=== PATIENT | female | born 1945 | race Caucasian/White ===

== ENCOUNTER 2016-05-19 14:59 | Emergency (ER) | payer MEDICARE, OTHER ==
[2016-05-19 15:48] VITALS: BP 153/73; PULSE 76; RESP 20; TEMP 97.8
[2016-05-19] MEDS ORDERED: KETOROLAC 60 MG/2 ML VIAL IM STA (15:55)
--- NOTE | 2016-05-19 15:59 | ED ---
Upper Extremity HPI - General Chief Complaint: Extremity Injury, Upper Stated Complaint: Fall - Shoulder Injury Time Seen by Provider: 05/19/16 15:50 Source: patient, RN notes reviewed Mode of arrival: wheelchair Limitations: no limitations - History of Present Illness Initial Comments: 70-year-old female presents to the emergency room chief complaint of left shoulder pain. Patient states that she tripped and fell and landed onto her left shoulder. Patient states that she felt a muscle tear. Patient states since then she had pain with movement of the shoulder. Patient states that she was concerned due to the fact that her shoulder was causing her some discomfort. Patient states that she thinks she needs an MRI. Patient states she's able to move the shoulder she has good sensation she did not hit her head but there is no passing ill. Patient states that she was concerned due to the pain so she thought that she should be evaluated. Patient denies any recent fever, chills, shortness of breath, chest pain, back pain, abdominal pain, nausea vomiting, numbness or tingling, dysuria or hematuria, constipation or diarrhea, headaches or visual changes, or any other current symptoms. - Related Data Home Medications Medication Instructions Recorded Confirmed Metoprolol Tartrate [Lopressor] 25 mg PO BID 11/28/14 05/19/16 oxyCODONE-APAP 7.5-325MG [Percocet 1 tab PO Q6HR 05/19/16 05/19/16 7.5-325 mg] Allergies Allergy/AdvReac Type Severity Reaction Status Date / Time adhesive Allergy RASH-PAPER Verified 01/22/15 11:10 TAPE OKAY Review of Systems ROS Statement: Those systems with pertinent positive or pertinent negative responses have been documented in the HPI. ROS Other: All systems not noted in ROS Statement are negative. Past Medical History Past Medical History: Hypertension Additional Past Medical History / Comment(s): OCCASIONAL HEART PALPITATIONS, WAS ON DIABETIC MEDICATION -LOST 160LBS AND HAS BEEN OFF MEDICATION SINCE 2007 History of Any Multi-Drug Resistant Organisms: None Reported Past Surgical History: Section, Hysterectomy, Orthopedic Surgery Additional Past Surgical History / Comment(s): , X 3, COLONOSCOPY, RIGHT ELBOW Past Anesthesia/Blood Transfusion Reactions: No Reported Reaction Past Psychological History: No Psychological Hx Reported Smoking Status: Current every day smoker Past Alcohol Use History: None Reported Additional Past Alcohol Use History / Comment(s): STARTED SMOKING 07/10 PPD Past Drug Use History: None Reported - Past Family History Mother Family Medical History: Diabetes Mellitus, Hypertension, Renal Disease Additional Family Medical History / Comment(s): FROM KIDNEY FAILURE Father Family Medical History: Coronary Artery Disease (CAD) General Exam - General Exam Comments Initial Comments: General: The patient is awake and alert, in no distress, and does not appear acutely ill. Neck: The neck is supple, there is no tenderness or JVD. Cardiovascular: There is a regular rate and rhythm. No murmur, rub or gallop is appreciated. Respiratory: Lungs are clear to auscultation, respirations are non-labored, breath sounds are equal. No wheezes, stridor, rales, or rhonchi. Musculoskeletal: Sensation intact with 2+ pulses throughout the left upper extremity. Patient signed torsion of left wrist and left elbow. Patient has pain which over the anterior aspect of the left shoulder. Patient has pain on internal and external range of motion. Patient has good forward flexion and half way up abduction. Neurological: CN II-XII intact, There are no obvious motor or sensory deficits. Coordination appears grossly intact. Speech is normal. Skin: Skin is warm and dry and no rashes or lesions are noted. Psychiatric: Normal mood and affect. Limitations: no limitations Course Vital Signs 05/19/16 15:45 Temperature 97.8 F Pulse Rate 76 Respiratory 20 Rate Blood Pressure 153/73 O2 Sat by Pulse 97 Oximetry Procedures - Orthopedic Splinting/Casting Injury #1 Side: left Upper Extremity Injury Location: shoulder Upper Extremity Immobilizer: sling/shoulder immobilizer Medical Decision Making - Medical Decision Making 70-year-old male presents to the emergency department with a chief complaint of left fifth. Patient was offered an x-ray to evaluate for any sign of bony injury. Patient states she's now and on x-ray she noticed that there is no bones broken she was a muscle issue. We discussed that she should follow up for an MRI outpatient we. We discussed return parameters. Patient states she does not want an x-ray. Patient states that she will follow up for this. Patient states she'll take her sling and she will follow-up. We discussed continue use her Percocet at home. We discussed with the parasternal injections. We discussed return parameters. Patient states she understood all questions were addressed. She'll be discharged. We did discuss of the risk of frozen shoulder with a sling and we did discuss how to prevent this. Disposition Clinical Impression: Injury of left shoulder Disposition: HOME SELF-CARE Condition: Stable Instructions: Shoulder Pain (ED) Additional Instructions: Please use medication as discussed. Please follow up with family doctor if symptoms have not improved over the next two days. Please return to the emergency room if your symptoms increase or worsen or for any other concerns. Referrals: Farzaneh Rojas DO [Primary Care Provider] - 1-2 days Kendrick Foster MD [STAFF PHYSICIAN] - 1-2 days Time of Disposition: 15:59
== END 2016-05-19 16:10 | disposition home or self-care (01) ==
LOC: EC 14:59
DX: M25.512 Pain in left shoulder (principal); I10 Essential (primary) hypertension; F17.200 Nicotine dependence, unspecified, uncomplicated; Z91.048 Other nonmedicinal substance allergy status; Z79.899 Other long term (current) drug therapy; W01.0XXA Fall on same level from slipping, tripping and stumbling without subsequent striking against object, initial encounter
CPT/HCPCS: 99282; 96372; J1885

== ENCOUNTER → 2018-03-09 | Outpatient (CLI) | payer MEDICARE ==
--- NOTE | 2018-03-09 13:27 | XR ---
EXAMINATION TYPE: XR clavicle RT DATE OF EXAM: 03/09/2018 COMPARISON: NONE HISTORY: Pain TECHNIQUE: 2 views submitted FINDINGS: Mild diffuse osteopenia. AC joint maintained. No acute fracture or dislocation. IMPRESSION: Diffuse osteopenia
--- NOTE | 2018-03-09 13:28 | XR ---
EXAMINATION TYPE: XR shoulder limited RT DATE OF EXAM: 03/09/2018 COMPARISON: NONE HISTORY: Pain TECHNIQUE: Three views are submitted. FINDINGS: The osseous structures are intact. There is no acute fracture or dislocation. The AC joint is maint ained. Diffuse osteopenia noted. IMPRESSION: 1. No acute process. If symptoms persist consider MRI.
== END | disposition home or self-care (01) ==
LOC: RADXRYALE 12:56
PROVIDERS: ATTEND Nurse Practitioner Family
DX: M85.811 Other specified disorders of bone density and structure, right shoulder (principal)